=== PATIENT | female | born 1990 | race Caucasian/White ===

== ENCOUNTER 2020-02-20 09:33 | Day surgery (SDC) | payer BC ==
--- NOTE | 2020-02-20 08:11 | HP ---
DATE OF SURGERY: 02/20/2020 HISTORY OF PRESENT ILLNESS: The patient is a 29 year-old with a lot of pain epigastrium associated with nausea worse recently, worse with increased eating particularly big meal. No jaundice. She has had some loose stools. Ultrasound cholelithiasis. I feel she has symptomatic cholelithiasis acute exacerbation of chronic cholecystitis. I feel she would benefit from cholecystectomy. PAST MEDICAL HISTORY: Diabetes. PAST SURGICAL HISTORY: Tubes in the ears. Lymph node removed right ear. She had removal of some wisdom teeth in the past. MEDICATIONS: Metformin Extended Release, low dose aspirin. ALLERGIES: PENICILLIN. AMOXICILLIN. ERYTHROMYCIN. FAMILY HISTORY: Renal disease, diabetes. Breast and lung cancer. SOCIAL HISTORY: History of less than a pack per day smoker. Rare alcohol use. REVIEW OF SYSTEMS: Fourteen systems reviewed. No chest pain or palpitations. Other systems negative or noncontributory as above and per preadmission questionnaire. PHYSICAL EXAMINATION: GENERAL: No acute distress. HEENT: Sclerae nonicteric. NECK: No JVD. CHEST: Equal excursion, nonlabored breathing. CVS: Regular rate and rhythm. ABDOMEN: Soft. No peritoneal signs. Tenderness epigastrium. EXTREMITIES: No significant edema. NEURO: Alert, oriented, moving extremities symmetrically. No gross motor deficits noted. PSYCH: Appropriate mood and affect. IMPRESSION: Symptomatic cholelithiasis, acute exacerbation of chronic cholecystitis. I feel the patient will benefit from cholecystectomy. Risks and benefits explained in detail including but not limited to bleeding or infection, risk of trocar injury or hernia, risk of bile, bladder, blood vessel injury, risk of bile leak, bile duct injury, retained stone or sludge possibly requiring further procedure either open or ERCP, general risk of anesthesia, deep venous thrombosis, pulmonary embolism, pneumonia, perioperative risk of aches, pains, bloating, constipation and/or loose stools possibly even chronic in nature, possibility of needing an open procedure, possibility the procedure may not improve her symptoms. She may need further work up, endoscopy, other studies or procedures. She understands and agrees to the planned procedure, will proceed with outpatient laparoscopic cholecystectomy with possible open.
[~2020-02-20 09:33] MED LIST: DIPRIVAN 200 MG/20 ML IV ONE; Lactated Ringers 1,000 ML IV ONE; Quelicin Fliptop 200 MG/10 ML ONE; SUBLIMAZE 100 MCG/2 ML ONE; Sensorcaine 0.25% 10 ML ONE; Zemuron 100 MG/10 ML ONE
[2020-02-20] MEDS ORDERED: CLINDAMYCIN-D5W 900 MG/50 ML*** 900 MG/50 ML BAG IV STA (10:09)
[2020-02-20] MEDS ORDERED: Levofloxacin 500MG/100ML D5W 500 MG/100 ML BAG IV STA (10:11)
[2020-02-20] MEDS ORDERED: Lactated Ringers 1,000 ML IV SCH (10:30)
[2020-02-20 10:53] LABS: BLOOD UREA NITROGEN 12 mg/dL (7-17); CHLORIDE 105 mmol/L (98-107); Calcium 9.2 mg/dL (8.4-10.2); Carbon Dioxide 29 mmol/L (22-30); Creatinine 1 0.72 mg/dL (0.52-1.04); Glucose 98 mg/dL (74-106); Potassium 4.3 mmol/L (3.5-5.1); SODIUM 141 mmol/L (137-145)
[2020-02-20] MEDS ORDERED: Zemuron 100 MG/10 ML ONE (11:16)
[2020-02-20] MEDS ORDERED: Quelicin Fliptop 200 MG/10 ML ONE (11:16)
[2020-02-20] MEDS ORDERED: SUBLIMAZE 100 MCG/2 ML ONE ×2 (11:16→12:51)
[2020-02-20] MEDS ORDERED: DIPRIVAN 200 MG/20 ML IV ONE (11:16)
[2020-02-20] MEDS ORDERED: BRIDION 200MG/2ML IV ONE (12:18)
[2020-02-20] MEDS ORDERED: Zofran 4 MG/2 ML VIAL ONE (12:18)
[2020-02-20] MEDS ORDERED: TORAdol 30 mg Injection ONE (12:18)
[2020-02-20] MEDS ORDERED: Decadron 4 MG INJ ONE (12:18)
[2020-02-20] MEDS ORDERED: DILAUDID 2 MG INJECTION ONE (12:59)
--- NOTE | 2020-02-20 13:32 | OP ---
SURGERY DATE/TIME: 02/20/2020 1200 PREOPERATIVE DIAGNOSIS: Symptomatic cholelithiasis, acute exacerbation of chronic cholecystitis. POSTOPERATIVE DIAGNOSIS: Symptomatic cholelithiasis, acute exacerbation of chronic cholecystitis. PROCEDURE: Laparoscopic cholecystectomy. SURGEON: Dr. Justice Noonan. ANESTHESIA: General. ESTIMATED BLOOD LOSS: Minimal. INDICATIONS: As noted above. Risks and benefits explained in detail but not limited to and consent obtained. DESCRIPTION OF PROCEDURE AND FINDINGS: The patient was taken to the operating room. General anesthesia induced. Abdomen prepped and draped in the usual sterile fashion. After official time out and no disagreement with planned procedure, a transverse incision made at the supraumbilical area. Fascia grasped and pulled upward. Veress needle inserted and tested with saline. Pneumoperitoneum accomplished insufflating opening pressure of 0-15. An 11 mm bladeless port and camera inserted without difficulty followed by two - 5 mm right upper quadrant ports and 5 mm epigastric port. The gallbladder grasped retracted over the edge of the liver and laterally away from Calot's triangle dissecting posterior, lateral to anterior fashion. Slowly and carefully cystic duct and infundibular area slowly and carefully well skeletonized until the critical view obtained both anteriorly and posteriorly. Once this is accomplished, cystic duct and cystic artery clipped x3 and divided in usual fashion. Gallbladder was vascular requiring clipping additional side branches off the cystic artery as necessary directly on the gallbladder wall. The gallbladder slowly and carefully dissected free from its dense attachment to liver bed staying directly on the gallbladder wall. Just prior to releasing from final attachments to the anterior edge of the liver, the liver bed re-inspected. Clips noted in place in cystic duct and cystic artery stump. No signs of any active bleeding or bile leakage. It was felt there was no benefit from drain placement. Gallbladder released from final attachments, pulled up and out the supraumbilical port site and passed off for pathology. The port site closed with puncture closure device with #1 Vicryl under direct visualization of the camera. Copious amount of irrigation accomplished lateral to the liver and subhepatic space irrigating clear. Liver bed re-inspected. Clips noted in place in cystic duct and cystic artery stump. No signs of any active bleeding or bile leakage. It was felt there was no benefit in drain placement. Pneumoperitoneum decompressed. The wound irrigated out. Skin incision closed with 4-0 Vicryl. Steri-Strips and sterile dressing applied. 0.25% Marcaine local injected along the skin incision fascial defect. The patient tolerated the procedure well. There were no immediate complications. Findings discussed with the family out in the waiting area.
[2020-02-20 13:39] VITALS: O2SAT 100
[2020-02-20 15:30] VITALS: BP 118/74; PULSE 78
== END 2020-02-20 15:10 | disposition home or self-care (01) ==
LOC: SDC 09:33
PROVIDERS: ATTEND Surgery
DX: K80.10 Calculus of gallbladder with chronic cholecystitis without obstruction (principal); E11.9 Type 2 diabetes mellitus without complications; Z79.899 Other long term (current) drug therapy
CPT/HCPCS: 36415; 80048; 84703; J0330; J1100; J1170; J1885; J1956; J2405; J2704; J3010